=== PATIENT | female | born 1990 | race African-American/Black ===

== ENCOUNTER 2017-05-14 12:10 | Emergency (ER) | payer MEDICAID ==
[2017-05-14] MEDS ORDERED: IBUPROFEN 400 MG TABLET PO ONE (12:32)
[2017-05-14] MEDS ORDERED: IBUPROFEN 400 MG TABLET ONE (12:33)
--- NOTE | 2017-05-14 12:41 | ERNOTE ---
ENT HPI Presenting Symptoms: dental pain Time Seen by Provider: 05/14/17 12:28 Source: patient Exam Limitations: no limitations - Immun/Allergies/Home Medications Immunizations: IMMUNIZATION HX Immunizations Up to Date Yes History of Influenza Vaccine Yes Hx Pneumococcal Vaccination Yes Allergies/Adverse Reactions: Allergies Allergy/AdvReac Type Severity Reaction Status Date / Time No Known Allergies Allergy Unverified 05/14/17 12:27 Home Medications: HOME MEDICATIONS Amoxicillin Trihydrate [Amoxil] 500 mg PO TID #30 cap 05/14/17 [Last Taken Unknown] Ibuprofen 400 mg PO Q6H PRN #30 tablet 05/14/17 [Last Taken Unknown] - History of Present Illness Narrative: Patient has had pain in her right lower wisdom tooth for about six days, has not been able to get in with a dentist, has only taken tylenol so far for pain Date (Duration): 05/08/17 Review of Systems - Review of Systems Constitutional: Absent: recent illness, fever ENT: Absent: nose congestion, sore throat Respiratory: Absent: shortness of breath Cardiology: Absent: chest pain Gastrointestinal/Abdominal: Absent: nausea, abdominal pain Genitourinary: Present: no symptoms reported Musculoskeletal: Present: no symptoms reported Skin: Absent: rash Neurological: Present: no symptoms reported - Patient's Past Medical History Patient History - Medical: No pertinent hx Patient History - Cardiac/Respiratory: No pertinent hx Patient History - Cancer: No Hx of Cancer Patient History - Surgical Procedures: Patient History - Other: None LMP (females 10-50): now - Social History Living Situations: home Abuse History: No History of abuse Psych History: No pertinent hx Smoking Status: Current every day smoker Alcohol Use: none Drug Use: none - Immunizations Immunizations Up to Date: Yes Hx Pneumococcal Vaccination: Yes History of Influenza Vaccine: Yes Physical Exam - Physical Exam General Appearance: Present: wd/wn, alert, no apparent distress Ears, Nose, Throat: Present: normal pharynx, other - right lower wisdom tooth erupted with surrounding gum swelling and tenderness, no carries Neck: Absent: lymphadenopathy (R), lymphadenopathy (L) Respiratory: Present: no respiratory distress, normal breath sounds, no accessory muscle use, lungs clear Cardiovascular/Chest: Present: regular rate, rhythm, no murmur Neurological Exam: Present: alert, oriented, normal mood/affect Skin Exam: Present: normal color, warm/dry ED Progress - Vital Signs Patient's Vital Signs:: I have reviewed the patient's vital signs. Vital Signs: Vital Signs 05/14/17 12:20 Temperature 37.0 C Pulse Rate 82 Respiratory 15 Rate Blood Pressure 123/86 O2 Sat by Pulse 100 Oximetry - Progress/Reassessment Chief Complaint: Dental Problem Departure Clinical Impression: Pain, dental - Departure Disposition: Home self-care Condition: Good Instructions: Dental Abscess, [id number] Additional Instructions: call a dentist after the weekend ASHLEY Prescriptions: Amoxicillin Trihydrate [Amoxil] 500 mg PO TID #30 cap Ibuprofen 400 mg PO Q6H PRN #30 tablet PRN Reason: Pain
[2017-05-14 12:43] VITALS: BP 119/77
== END 2017-05-14 12:47 | disposition home or self-care (01) ==
LOC: ER 12:10
DX: K08.89 Other specified disorders of teeth and supporting structures (principal); F17.200 Nicotine dependence, unspecified, uncomplicated